=== PATIENT | female | born 1985 | race Caucasian/White ===

== ENCOUNTER 2021-03-06 18:26 | Inpatient (IN) | payer OTHER, SELFPAY ==
[2021-03-06] VITALS (81 sets, daily range): BP systolic 130–180; BP diastolic 66–98; PULSE 69–101; RESP 16; TEMP 36.4–36.8; O2SAT 93–100
[2021-03-06 10:20] LABS: Basophils Percent Auto 0.3 % (0.2-1.2); Eosinophils Absolute Auto 0.2 K/mm3 (0-0.3); Eosinophils Percent Auto 1.8 % (0-4.4); Hematocrit 35.3 % (37.0-47.0); Immature Granulocyte Absolute 0.14 K/mm3 (0.00-0.031); Immature Granulocyte Percent A 1.3 % (0-0.5); Lymphocytes Percent Auto 9.1 % (18.3-44.2); Mean Corpuscular Hemoglobin 29.5 pg (26-34); Mean Corpuscular Volume 86.7 fl (80-100); Mean Platelet Volume 10.5 fl (7.4-10.4); Monocytes Absolute Auto 0.7 K/mm3 (0.1-0.6); Monocytes Percent Auto 6.6 % (2.6-8.5); Neutrophils Absolute Auto 8.9 K/mm3 (1.3-6.7); Neutrophils Percent Auto 80.9 % (45.5-73.1); Platelet Count Result 251 k/mm3 (150-375); Red Blood Count 4.07 M/mm3 (4.2-5.4); Red Cell Distribution Width 12.1 % (11.5-14.5)
[2021-03-06 10:25] LABS: Add Urine Microscopic? NO; Appearance Urine Clear (Clear); Bilirubin Urine Negative (Negative); Blood Urine Negative (Negative); Color Urine Straw (Yellow); Glucose Urine UA Negative (Negative); Ketones Urine Negative (Negative); Leukocyte Esterase Ur Negative LEU/UL (NEGATIVE); Nitrate Urine Negative (Negative); Protein Urine Negative (Negative); Urobilinogen Urine Negative mg/dL (<2.0)
[2021-03-06 10:27] LABS: Specific Grav Ur 1.003 (1.001-1.035)
[2021-03-06 10:32] LABS: Alanine Aminotransferase 17 U/L (4-35); Albumin Level 3.4 g/dL (3.5-5.1); Alkaline Phosphatase 90 U/L (38-126); Anion Gap 7 mmol/L (8-16); Aspartate Amino Transferase 25 U/L (14-36); Bilirubin,Total 0.2 mg/dL (0.2-1.3); Blood Urea Nitrogen 4 mg/dL (7-17); Calcium 8.7 mg/dL (8.4-10.2); Carbon Dioxide 22 mmol/L (22-30); Chloride 107 mmol/L (98-107); Estimated Glomerular Filt Rate > 60; Glucose 99 mg/dL (65-105); Potassium 3.7 mmol/L (3.4-5.0); Sodium 136 mmol/L (137-145); Uric Acid 4.6 mg/dL (2.5-7.5)
--- NOTE | 2021-03-06 12:05 | PC.NURSE ---
1156- SPoke with Pan Ferraro CNM, labs and BPs reveiwed. Patient with reports of a headache that was not relieved with Tylenol 1gm taken at 0530, patinet took another 500mg at 0830. Per Pan Ferraro CNM, patient may order lunch, she will speak with Dr. Torres and call me back with new orders.
[2021-03-06 15:43] LABS: Creatinine Urine 16.6 mg/dL; Total Protein Urine Random 15 mg/dL
--- NOTE | 2021-03-06 16:37 | PM.IMHP ---
H&P: HPI History of Present Illness Date/Time: 03/06/21 16:37 Chief Complaint: elevated BPs Narrative: Emily is a 35yo at 36.3 with elevated Bps. PC ratio 0.9. Was hoping for a tolac. First CS was for FTD of 6# baby. Review of Systems Review of Systems: All systems reviewed & are unremarkable except as noted in HPI and below Meds Home Medications and Allergies Allergies Allergy/AdvReac Type Severity Reaction Status Date / Time No Known Allergies Allergy Unverified 10/20/17 13:45 Vital Signs Vital Signs - 24 hr 03/06/21 09:46 03/06/21 10:01 03/06/21 10:20 Pulse Rate 91 85 74 Blood Pressure 158/94 H 149/94 H Blood Pressure [Left Arm] 158/94 H 03/06/21 10:43 03/06/21 10:46 03/06/21 11:01 Pulse Rate 82 76 77 Blood Pressure 161/90 H 153/97 H 154/93 H Blood Pressure [Left Arm] 03/06/21 11:16 03/06/21 11:31 03/06/21 11:46 Pulse Rate 79 75 85 Blood Pressure 160/80 H 150/90 H 152/86 H Blood Pressure [Left Arm] 03/06/21 13:01 03/06/21 16:16 Pulse Rate 89 77 Blood Pressure 166/84 H 165/95 H Blood Pressure [Left Arm] Exam Const: General: no acute distress Resp: Effort & Inspection: normal respiratory effort Auscultation: clear to auscultation bilaterally Cardio: Rate: regular rate Rhythm: regular rhythm GI: GI Palp: Yes Soft to palpation Extrem: General: normal to inspection H&P: Results Labs Labs: Short CBC 03/06/21 Range/Units 10:04 WBC 11.0 H (4.5-10.0) K/mm3 Hgb 12.0 (12.0-15.0) g/dL Hct 35.3 L (37.0-47.0) % Plt Count 251 (150-375) k/mm3 BMP 03/06/21 10:04 Sodium 136 L Potassium 3.7 Chloride 107 Carbon Dioxide 22 BUN 4 L Creatinine 0.50 L Glucose 99 Calcium 8.7 Liver Function 03/06/21 Range/Units 10:04 Total Bilirubin 0.2 (0.2-1.3) mg/dL AST 25 (14-36) U/L ALT 17 (4-35) U/L Alkaline Phosphatase 90 (38-126) U/L Albumin 3.4 L (3.5-5.1) g/dL Urine 03/06/21 Range/Units 10:04 Urine Color Straw (Yellow) Urine Appearance Clear (Clear) Urine pH 7.0 (5.0-9.0) Ur Specific [place] 1.003 (1.001-1.035) Urine Protein Negative (Negative) mg/dL Urine Glucose (UA) Negative (Negative) mg/dL Assessment and Plan Additional Plan Reassuring status- category 1 BPs elevated- moderately. 24 hour urine pending. If any features of severe PreE, will deliver. Discussed with her that CS is more prudent in these circumstances with cervix unfavorable and her pelvis unable to deliver a 6# baby last time. I recommend R CS when delivery needed.
[2021-03-06] MEDS: ACETAMINOPHEN 500 MG TABLET 1000 MG PO (17:00)
[2021-03-06] MEDS: LACTATED RINGERS 1,000 ML 125 ML IV CONT (19:15)
[2021-03-06] MEDS: MAGNESIUM SULF 4 GM/WATER100ML 4 GM/100 ML BAG IVPB (19:16)
--- NOTE | 2021-03-06 19:30 | PC.NURSE ---
Dr. Torres notified of pt blood pressures. Pt to have at 0730 in AM. NPO after midnight. Anesthesia chose time and aware.
[2021-03-06] MEDS: MAGNESIUM SULF 20GM/WATER500ML 500 ML 50 MG IV CONT (19:38)
--- NOTE | 2021-03-06 20:11 | PC.NURSE ---
[address] HUDSON TO UPDATE ABOUT SUSTAINED HIGH BLOOD PRESSURES. ORDERS RECEIVED TO GIVEN LABETALOL 20 MG IV NOW AND START PROCARDIA XL 30 MG DAILY WITH A FIRST DOSE NOW.
--- NOTE | 2021-03-06 22:40 | PC.NURSE ---
[address] HUDSON ABOUT SUSTAINED HIGH BLOOD PRESSURE AFTER TREATMENT. ORDERS RECEIVED FOR LABETALOL IV 40MG NOW.
[2021-03-07] VITALS (158 sets, daily range): BP systolic 119–168; BP diastolic 60–117; PULSE 25–122; RESP 14–20; TEMP 36.1–36.7; O2SAT 77–100; BMI 42.7
[2021-03-07] MEDS: ACETAMINOPHEN 500 MG TABLET 1000 MG PO (00:58)
[2021-03-07] MEDS: MAGNESIUM SULF 20GM/WATER500ML 500 ML 50 MG IV CONT ×2 (05:50→18:15)
--- NOTE | 2021-03-07 06:57 | WPDANESEPPF ---
Anes - Initial Pre Proc Eval Date/Time: 03/07/21 06:57 Surgeon: Belle Torre MD Pre Op Diagnosis: Hip Evaluation Patient Data Age: 35 Gender: F Height: 1.55 m Weight: 102.7 kg Last Vital Signs Temp 36.8 C 03/06/21 19:16 Pulse 82 03/07/21 06:31 Resp 14 03/07/21 02:00 BP 161/90 H 03/07/21 06:31 Pulse Ox 85 L 03/07/21 06:53 Allergies Allergy/AdvReac Type Severity Reaction Status Date / Time No Known Allergies Allergy Unverified 10/20/17 13:45 Home Medications Medication Instructions Recorded Confirmed Type [id number] fumarate-FA 1 tablet PO DAILY 03/07/21 03/07/21 History [] levothyroxine 50 mcg PO DAILY 03/07/21 03/07/21 History Laboratory Tests 03/06/21 03/06/21 03/06/21 10:04 10:04 10:04 WBC 11.0 K/mm3 H K/mm3 (4.5-10.0) RBC 4.07 M/mm3 L M/mm3 (4.2-5.4) Hgb 12.0 g/dL g/dL (12.0-15.0) Hct 35.3 % L % (37.0-47.0) MCV 86.7 fl fl (80-100) MCH 29.5 pg pg (26-34) MCHC 34.0 g/dl g/dl (32-36) RDW 12.1 % % (11.5-14.5) Plt Count 251 k/mm3 k/mm3 (150-375) MPV 10.5 fl H fl (7.4-10.4) Immature Gran % (Auto) 1.3 % H % (0-0.5) Neut % (Auto) 80.9 % H % (45.5-73.1) Lymph % (Auto) 9.1 % L % (18.3-44.2) [place] % (Auto) 6.6 % % (2.6-8.5) Eos % (Auto) 1.8 % % (0-4.4) Baso % (Auto) 0.3 % % (0.2-1.2) Lymph # (Auto) 1.00 K/mm3 K/mm3 (0.9-3.2) [place] # (Auto) 0.7 K/mm3 H K/mm3 (0.1-0.6) Eos # (Auto) 0.2 K/mm3 K/mm3 (0-0.3) Baso # (Auto) 0.0 K/mm3 K/mm3 (0.0-0.1) Abs Immat Gran (auto) 0.14 K/mm3 H K/mm3 (0.00-0.031) Absolute Neuts (auto) 8.9 K/mm3 H K/mm3 (1.3-6.7) Absolute Nucleated RBC 0.0 K/mm3 K/mm3 (0.0-0.012) Nucleated RBC % 0.0 % % (0.0-0.2) Sodium Potassium Chloride Carbon Dioxide Anion Gap BUN Creatinine Estim Creat Clear Calc Estimated GFR Glucose Uric Acid Calcium Total Bilirubin AST ALT Alkaline Phosphatase Total Protein Albumin Urine Color Straw (Yellow) Urine Appearance Clear (Clear) Urine pH 7.0 (5.0-9.0) Ur Specific [place] 1.003 (1.001-1.035) Urine Protein Negative mg/dL mg/dL (Negative) Urine Glucose (UA) Negative mg/dL mg/dL (Negative) Urine Ketones Negative mg/dL mg/dL (Negative) Ur Blood (Man) Negative (Negative) Urine Nitrate Negative (Negative) Urine Bilirubin Negative (Negative) Urine Urobilinogen Negative mg/dL mg/dL (<2.0) Ur Leukocyte Esterase Negative MADYSON/UL MADYSON/UL (NEGATIVE) U Random Total Protein 15 mg/dL mg/dL Urine Creatinine 16.6 mg/dL mg/dL Protein/Creat Ratio 2 0.90 mg/mg H mg/mg (0-0.20) RPR Blood Type Antibody Screen 03/06/21 03/06/21 03/06/21 10:04 19:24 19:24 WBC RBC Hgb Hct MCV MCH MCHC RDW Plt Count MPV Immature Gran % (Auto) Neut % (Auto) Lymph % (Auto) [place] % (Auto) Eos % (Auto) Baso % (Auto) Lymph # (Auto) [place] # (Auto) Eos # (Auto) Baso # (Auto) Abs Immat Gran (auto) Absolute Neuts (auto) Absolute Nucleated RBC Nucleated RBC % Sodium 136 mmol/L L mmol/L (137-145) Potassium 3.7 mmol/L mmol/L (3.4-5.0) Chloride
[2021-03-07] MEDS: LABETALOL HCL INJ 100 MG/20 ML VIAL 20 MG IV PUSH (07:00)
--- NOTE | 2021-03-07 07:00 | WPDANESEPPF ---
Anes - Initial Pre Proc Eval Procedure: C section Date/Time: 03/07/21 07:00 Surgeon: Melissa Pre Op Diagnosis: PI Pre Op Diagnosis: Hip Evaluation Patient Data Age: 35 Gender: F Height: 1.55 m Weight: 102.7 kg Last Vital Signs Temp 36.8 C 03/06/21 19:16 Pulse 82 03/07/21 06:31 Resp 14 03/07/21 02:00 BP 161/90 H 03/07/21 06:31 Pulse Ox 97 03/07/21 06:58 Allergies Allergy/AdvReac Type Severity Reaction Status Date / Time No Known Allergies Allergy Unverified 10/20/17 13:45 Home Medications Medication Instructions Recorded Confirmed Type [id number] fumarate-FA 1 tablet PO DAILY 03/07/21 03/07/21 History [] levothyroxine 50 mcg PO DAILY 03/07/21 03/07/21 History Laboratory Tests 03/06/21 03/06/21 03/06/21 10:04 10:04 10:04 WBC 11.0 K/mm3 H K/mm3 (4.5-10.0) RBC 4.07 M/mm3 L M/mm3 (4.2-5.4) Hgb 12.0 g/dL g/dL (12.0-15.0) Hct 35.3 % L % (37.0-47.0) MCV 86.7 fl fl (80-100) MCH 29.5 pg pg (26-34) MCHC 34.0 g/dl g/dl (32-36) RDW 12.1 % % (11.5-14.5) Plt Count 251 k/mm3 k/mm3 (150-375) MPV 10.5 fl H fl (7.4-10.4) Immature Gran % (Auto) 1.3 % H % (0-0.5) Neut % (Auto) 80.9 % H % (45.5-73.1) Lymph % (Auto) 9.1 % L % (18.3-44.2) [place] % (Auto) 6.6 % % (2.6-8.5) Eos % (Auto) 1.8 % % (0-4.4) Baso % (Auto) 0.3 % % (0.2-1.2) Lymph # (Auto) 1.00 K/mm3 K/mm3 (0.9-3.2) [place] # (Auto) 0.7 K/mm3 H K/mm3 (0.1-0.6) Eos # (Auto) 0.2 K/mm3 K/mm3 (0-0.3) Baso # (Auto) 0.0 K/mm3 K/mm3 (0.0-0.1) Abs Immat Gran (auto) 0.14 K/mm3 H K/mm3 (0.00-0.031) Absolute Neuts (auto) 8.9 K/mm3 H K/mm3 (1.3-6.7) Absolute Nucleated RBC 0.0 K/mm3 K/mm3 (0.0-0.012) Nucleated RBC % 0.0 % % (0.0-0.2) Sodium Potassium Chloride Carbon Dioxide Anion Gap BUN Creatinine Estim Creat Clear Calc Estimated GFR Glucose Uric Acid Calcium Total Bilirubin AST ALT Alkaline Phosphatase Total Protein Albumin Urine Color Straw (Yellow) Urine Appearance Clear (Clear) Urine pH 7.0 (5.0-9.0) Ur Specific [place] 1.003 (1.001-1.035) Urine Protein Negative mg/dL mg/dL (Negative) Urine Glucose (UA) Negative mg/dL mg/dL (Negative) Urine Ketones Negative mg/dL mg/dL (Negative) Ur Blood (Man) Negative (Negative) Urine Nitrate Negative (Negative) Urine Bilirubin Negative (Negative) Urine Urobilinogen Negative mg/dL mg/dL (<2.0) Ur Leukocyte Esterase Negative MADYSNO/UL MADYSON/UL (NEGATIVE) U Random Total Protein 15 mg/dL mg/dL Urine Creatinine 16.6 mg/dL mg/dL Protein/Creat Ratio 2 0.90 mg/mg H mg/mg (0-0.20) RPR Blood Type Antibody Screen 03/06/21 03/06/21 03/06/21 10:04 19:24 19:24 WBC RBC Hgb Hct MCV MCH MCHC RDW Plt Count MPV Immature Gran % (Auto) Neut % (Auto) Lymph % (Auto) [place] % (Auto) Eos % (Auto) Baso % (Auto) Lymph # (Auto) [place] # (Auto) Eos # (Auto) Baso # (Auto) Abs Immat Gran (auto) Absolute Neuts (auto) Absolute Nucleated RBC Nucleated RBC % Sodium 136 mmol/L L mmol/L (137-145) Potassium 3.7 mmol/L mmol/L
--- NOTE | 2021-03-07 07:24 | PM.IMHP ---
H&P: HPI History of Present Illness Date/Time: 03/07/21 07:24 Chief Complaint: PreE Narrative: Emily is a 35yo with prior CS who is 36.3 with PreE with severe features. Required IV labetalol 3 doses so far. On magnesium also. GOMEZ x more than one day. Plan repeat CS this morning. Review of Systems Review of Systems: All systems reviewed & are unremarkable except as noted in HPI and below PMFSH Past Medical History Medical History (Updated 03/07/21 @ 06:58 by Miah Mujica DO) Hypothyroidism PIH ( induced hypertension) Family History Family History (Updated 03/07/21 @ 06:10 by Shelli Brandon RN) Grandparent Diabetes mellitus Lung cancer Father Hypertension Mother Hypertension Social History Social History Smoking status: Never smoker Second hand tobacco smoke exposure: No Substance use: never Gender identity (if verbalized by the patient): Female Sexual Orientation (if Verbalized by the Patient): Straight or Heterosexual Spiritual care concerns: No Meds Home Medications and Allergies Home Medications Medication Instructions Recorded Confirmed Type [id number] fumarate-FA 1 tablet PO DAILY 03/07/21 03/07/21 History [] levothyroxine 50 mcg PO DAILY 03/07/21 03/07/21 History Allergies Allergy/AdvReac Type Severity Reaction Status Date / Time No Known Allergies Allergy Unverified 10/20/17 13:45 Vital Signs Vital Signs - 24 hr 03/06/21 09:46 03/06/21 10:00 03/06/21 10:01 Temperature 97.6 F Pulse Rate 91 85 Respiratory Rate Blood Pressure 158/94 H 149/94 H Blood Pressure [Left Arm] Pulse Oximetry 03/06/21 10:20 03/06/21 10:43 03/06/21 10:46 Temperature Pulse Rate 74 82 76 Respiratory Rate Blood Pressure 161/90 H 153/97 H Blood Pressure [Left Arm] 158/94 H Pulse Oximetry 03/06/21 11:01 03/06/21 11:16 03/06/21 11:31 Temperature Pulse Rate 77 79 75 Respiratory Rate Blood Pressure 154/93 H 160/80 H 150/90 H Blood Pressure [Left Arm] Pulse Oximetry 03/06/21 11:46 03/06/21 13:01 03/06/21 16:16 Temperature Pulse Rate 85 89 77 Respiratory Rate Blood Pressure 152/86 H 166/84 H 165/95 H Blood Pressure [Left Arm] Pulse Oximetry 03/06/21 17:47 03/06/21 19:09 03/06/21 19:16 Temperature 98.2 F Pulse Rate 83 97 82 Respiratory Rate Blood Pressure 174/93 H 144/83 H 143/77 H Blood Pressure [Left Arm] Pulse Oximetry 03/06/21 19:23 03/06/21 19:25 03/06/21 19:28 Temperature Pulse Rate 88 Respiratory Rate Blood Pressure 152/69 H Blood Pressure [Left Arm] Pulse Oximetry 97 98 03/06/21 19:30 03/06/21 19:33 03/06/21 19:38 Temperature Pulse Rate 96 Respiratory Rate Blood Pressure 150/85 H Blood Pressure [Left Arm] Pulse Oximetry 97 99 03/06/21 19:43 03/06/21 19:48 03/06/21 19:50 Temperature Pulse Rate 89 Respiratory Rate Blood Pressure 161/88 H Blood Pressure [Left Arm] Pulse Oximetry 98 99 03/06/21 19:53 03/06/21 19:58 03/06/21 20:00 Temperature Pulse Rate 87 Respiratory Rate Blood Pressure 174/86 H Blood Pressure [Left Arm] Pulse Oximetry 99 98 03/06/21 20:03 03/06/21 20:08 03/06/21 20:13 Temperature Pulse Rate Respiratory Rate Blood Pressure Blood Pressure [Left Arm] Pulse Oximetry 98 98 98 03/06/21 20:15 03/06/21 20:18 03/06/21 20:23 Temperature Pulse Rate 92 Respiratory Rate Blood Pressure 163/89 H Blood Pressure [Left Arm] Pulse Oximetry 99 98 03/06/21 20:28 03/06/21 20:30 03/06/21 20:33 Temperature Pulse Rate 89 Respiratory Rate Blood Pressure 161/84 H Blood Pressure [Left Arm] Pulse Oximetry 98 98 03/06/21 20:38 03/06/21 20:43 03/06/21 20:48 Temperature Pulse Rate Respiratory Rate Blood Pressure Blood Pressure [Left Arm] Pulse Oximetry 100 98 99 03/06/21 20:50 06/2
--- NOTE | 2021-03-07 07:28 | WPDHPUPDATE1 ---
History and Physical Update Update Date/Time: 03/07/21 07:28 History and Physical has been reviewed, including an updated exam of the patient. There are NO changes in the patient's condition. Risks, benefits, and alternatives have been discussed and questions answered. Patient agrees to proceed with procedure.
[2021-03-07] MEDS: LACTATED RINGERS 1,000 ML 125 ML IV CONT (07:34)
[2021-03-07] MEDS: ceFAZolin 2 GM/D5W 50 ML 2 GM/50 ML BAG IVPB (07:35)
[2021-03-07] MEDS: miSOPROStol 200 MCG TABLET 1000 MCG (09:05)
--- NOTE | 2021-03-07 09:21 | PM.OBPRVD ---
OB - Delivery Note Procedure Delivery date: 03/07/21 Procedure: repeat section events: Previous and Pre-Eclampsia Intrapartal events: Severe Preeclampsia Induction method: none Route of delivery: Specimen: Yes (placenta) Quantitative Blood Loss (ml): 315 Anesthesia type: CSE Disposition: floor Complications: none Narrative: The patient was taken to the OR and received spinal anesthesia. She was placed in dorsal supine position with left lateral tilt. SCDs and stark were placed. She was prepped and draped in the normal sterile fashion. A Pfannensteil skin incision was made and carried through to the underlying layer of fascia. The fascia was incised in the midline and then extended laterally using Harry scissors. The muscles were in the midline. Omentum was attached to the peritoneum, but eventually an opening in the peritoneum was made bluntly in an area without omentum. The peritoneal incision was extended inferiorly and superiorly and laterally with care to avoid the bladder, omentum, and bowel. The bladder blade was then inserted, the vesicouterine peritoneum was grasped, incised with Metzenbaum scissors, and a bladder flap created. The bladder blade was reinserted. A low transverse uterine incision was made with a scalpel and extended bluntly. AROM was performed and fluid was noted to be clear. The head was delivered, followed by the remainder of the baby. The baby's oropharynx was suctioned. After 30 seconds, the cord was clamped and cut and the infant was handed off. Cord blood was obtained and the placenta was then removed manually. The uterus was exteriorized. A moist lap sponge was used to curette the endometrium. The uterine incision was then closed with one layer of 0-Vicryl in a running, locking fashion. Good hemostasis was noted. The posterior cul de sac was irrigated with normal saline and cleared of all clot and debris. The uterus was returned to the abdomen. Uterine atony due to magnesium was treated with hemabate and extra pitocin. Both lateral gutters were then irrigated. The rectus muscles were inspected and found to be hemostatic. The fascia was reapproximated using 0-Vicryl in running fashion. The subcutaneous tissue was irrigated with normal saline and made hemostatic with Bovie electrocautery. The subcutaneous tissue was reapproximated with a layer of running 2-0 plain gut. The skin was then closed with absorbable eric. Steri strips and a bandage were applied. The uterus was evacuated. Cytotec was given rectally to help uterine tone. The patient tolerated the procedure very well. All counts were correct. She was taken to the recovery room in good condition. Baby Date of : 03/07/21 Time of : 08:37 Weeks of gestation at delivery: 36 Infant gender: Male Weight (pounds): 6 Weight (ounces): 1 presentation: vertex Placenta delivery description: Manual Removal cord vessel description: 3 Vessels and Delayed Cord Clamping score one minute: 8 score five minutes: 9
[2021-03-07] MEDS: OXYTOCIN 30 UNITS/NS 500 ML 30 UNITS/500 ML BAG 125 UNITS IV CONT (09:47)
[2021-03-07] MEDS: MORPHINE SULFATE (*CRX) 2 MG/ML INJ IV PUSH (09:55)
[2021-03-07 12:41] LABS: Basophils Percent Auto 0.2 % (0.2-1.2); Eosinophils Percent Auto 0.2 % (0-4.4); Hemoglobin 12.1 g/dL (12.0-15.0); Immature Granulocyte Absolute 0.08 K/mm3 (0.00-0.031); Immature Granulocyte Percent A 0.6 % (0-0.5); Lymphocytes Absolute Auto 0.85 K/mm3 (0.9-3.2); Lymphocytes Percent Auto 6.5 % (18.3-44.2); Mean Corpuscular HGB Conc 33.6 g/dl (32-36); Mean Corpuscular Hemoglobin 29.9 pg (26-34); Mean Corpuscular Volume 88.9 fl (80-100); Mean Platelet Volume 10.2 fl (7.4-10.4); Monocytes Absolute Auto 0.6 K/mm3 (0.1-0.6); Monocytes Percent Auto 4.9 % (2.6-8.5); Neutrophils Absolute Auto 11.4 K/mm3 (1.3-6.7); Neutrophils Percent Auto 87.6 % (45.5-73.1); Platelet Count Result 259 k/mm3 (150-375); Red Blood Count 4.05 M/mm3 (4.2-5.4); Red Cell Distribution Width 12.3 % (11.5-14.5)
[2021-03-07 12:55] LABS: Alanine Aminotransferase 18 U/L (4-35); Albumin Level 3.4 g/dL (3.5-5.1); Alkaline Phosphatase 104 U/L (38-126); Anion Gap 7 mmol/L (8-16); Aspartate Amino Transferase 32 U/L (14-36); Bilirubin,Total 0.2 mg/dL (0.2-1.3); Blood Urea Nitrogen 5 mg/dL (7-17); Calcium 7.3 mg/dL (8.4-10.2); Carbon Dioxide 21 mmol/L (22-30); Chloride 105 mmol/L (98-107); Estimated CRCL calculation 125 ml/min; Estimated Glomerular Filt Rate > 60; Glucose 108 mg/dL (65-105); Sodium 133 mmol/L (137-145); Uric Acid 4.8 mg/dL (2.5-7.5)
[2021-03-07] MEDS: KETOROLAC 30 MG/ML VIAL (*BKC) IV PUSH ×2 (13:21→19:50)
--- NOTE | 2021-03-07 13:42 | PC.NURSE ---
Patient transferred to post room #287 via stretcher. Support person present. Oriented to unit, room, information board, rooming in, admission packet and security measures. Patient verbalizes understanding.
[2021-03-07] MEDS: KCL 20 MEQ/D5/0.45% SOD CHL 1,000 ML 125 ML IV CONT (14:35)
[2021-03-07] MEDS: ONDANSETRON INJ 4 MG/2 ML VIAL IV PUSH ×2 (15:12→21:12)
[2021-03-07] MEDS: diphenhydrAMINE HCl INJ 50 MG/ML VIAL 12.5 MG IV PUSH (20:10)
[2021-03-07] MEDS: NIFEdipine 30 MG TAB.ER.24 PO (21:14)
[2021-03-08] VITALS (7 sets, daily range): BP systolic 117–159; BP diastolic 74–96; PULSE 72–102; RESP 16–18; TEMP 36.1–37.4; O2SAT 93–98
[2021-03-08] MEDS: SALINE 0.65% NAS SOLN 44 ML BTL 1 SPRAY NASAL (00:09)
[2021-03-08] MEDS: HYDROcodone/acetaminophen (*CRX) 5-325 MG TABLET 1 TAB PO (00:39)
[2021-03-08] MEDS: KETOROLAC 30 MG/ML VIAL (*BKC) IV PUSH (02:26)
[2021-03-08] MEDS: MAGNESIUM SULF 20GM/WATER500ML 500 ML 50 MG IV CONT (03:25)
[2021-03-08] MEDS: DEXTROSE 5%/0.45% SOD CHL 1,000 ML 75 ML IV CONT (03:25)
[2021-03-08 05:52] LABS: Basophils Percent Auto 0.2 % (0.2-1.2); Eosinophils Absolute Auto 0.1 K/mm3 (0-0.3); Eosinophils Percent Auto 0.9 % (0-4.4); Hematocrit 33.2 % (37.0-47.0); Immature Granulocyte Absolute 0.07 K/mm3 (0.00-0.031); Immature Granulocyte Percent A 0.7 % (0-0.5); Lymphocytes Absolute Auto 0.94 K/mm3 (0.9-3.2); Lymphocytes Percent Auto 9.4 % (18.3-44.2); Mean Corpuscular HGB Conc 33.1 g/dl (32-36); Mean Corpuscular Hemoglobin 29.6 pg (26-34); Mean Corpuscular Volume 89.2 fl (80-100); Mean Platelet Volume 10.5 fl (7.4-10.4); Monocytes Absolute Auto 0.7 K/mm3 (0.1-0.6); Monocytes Percent Auto 6.9 % (2.6-8.5); Neutrophils Absolute Auto 8.2 K/mm3 (1.3-6.7); Neutrophils Percent Auto 81.9 % (45.5-73.1); Platelet Count Result 230 k/mm3 (150-375); Red Blood Count 3.72 M/mm3 (4.2-5.4); Red Cell Distribution Width 12.3 % (11.5-14.5)
[2021-03-08] MEDS: LEVOTHYROXINE SODIUM 50 MCG TABLET PO (07:18)
--- NOTE | 2021-03-08 09:17 | WPDANLDNPN2 ---
Anes-Prog Note L&D-Neuraxial Date/Time: 03/08/21 09:17 Neuraxial medications: intrathecal PF morphine Patient feedback: Patient satisfied with post-operative pain management.
--- NOTE | 2021-03-08 09:17 | WPDANLDPN2 ---
Anes-Prog Note L&D Date/Time: 03/08/21 09:17 Comfortable throughout: section Neuraxial method: spinal Neuro status: Neuro function grossly intact. Cardiovascular status: normal Respiratory status: normal Airway patency: baseline Mental status: baseline Post-Op hydration status: normal Vital Signs: Last Vital Signs Temp 36.1 C L 03/08/21 07:15 Pulse 97 03/08/21 07:15 Resp 16 03/08/21 07:15 BP 132/75 03/08/21 07:15 Pulse Ox 97 03/08/21 07:15 Pain score (VAS): 0/10 I/O: Intake & Output 03/07/21 03/08/21 03/08/21 23:59 07:59 15:59 Intake Total 1400 1000 Output Total 1100 3675 Balance 300 -2675 Post-procedural complaints: none Patient feedback: Patient satisfied with anesthetic care.
[2021-03-08] MEDS: IBUPROFEN 600 MG TABLET PO ×2 (10:13→17:17)
[2021-03-08] MEDS: DOCUSATE SODIUM 100 MG CAPSULE PO ×2 (10:13→15:21)
[2021-03-08] MEDS: HYDROcodone/acetaminophen (*CRX) 10-325 MG TABLET 1 TAB PO ×3 (10:13→20:43)
[2021-03-08] MEDS: MULTIVIT/MIN/PREN/FOL AC/IRON TABLET 1 TAB PO (10:13)
--- NOTE | 2021-03-08 11:18 | PM.OBPNVD ---
OB - PN: Subj Subjective Date/time seen: 03/08/21 11:18 Patient comments: no complaints baby status: doing well Narrative: POD 1 from primary CS. Doing well. Normal lochia. Eating, ambulating, stark still in. OB - PN: Obj Data Labs CBC & Chem 7: 03/08/21 05:17 03/07/21 12:34 Labs: Laboratory Results - last 24 hr 03/07/21 03/07/21 03/08/21 12:34 12:34 05:17 WBC 13.0 H 10.0 RBC 4.05 L 3.72 L Hgb 12.1 11.0 L Hct 36.0 L 33.2 L MCV 88.9 89.2 MCH 29.9 29.6 MCHC 33.6 33.1 RDW 12.3 12.3 Plt Count 259 230 MPV 10.2 10.5 H Immature Gran % (Auto) 0.6 H 0.7 H Neut % (Auto) 87.6 H 81.9 H Lymph % (Auto) 6.5 L 9.4 L [place] % (Auto) 4.9 6.9 Eos % (Auto) 0.2 0.9 Baso % (Auto) 0.2 0.2 Lymph # (Auto) 0.85 L 0.94 [place] # (Auto) 0.6 0.7 H Eos # (Auto) 0.0 0.1 Baso # (Auto) 0.0 0.0 Abs Immat Gran (auto) 0.08 H 0.07 H Absolute Neuts (auto) 11.4 H 8.2 H Absolute Nucleated RBC 0.0 0.0 Nucleated RBC % 0.0 0.0 Sodium 133 L Potassium 4.0 Chloride 105 Carbon Dioxide 21 L Anion Gap 7 L BUN 5 L Creatinine 0.60 L Estim Creat Clear Calc 125 Estimated GFR > 60 Glucose 108 H Uric Acid 4.8 Calcium 7.3 L Total Bilirubin 0.2 AST 32 ALT 18 Alkaline Phosphatase 104 Total Protein 6.0 L Albumin 3.4 L OB - PN A/P Plan day: 1 Plan: routine care Comments: severe PreE- UOP excellent. s/p magnesium. BP only mildly elevated off mag. continue procardia xl 30 q HS. Pt anxious to go home, discussed that she was very sick and that sometimes BPs go back up around day 2. She should stay until POD 3, at least. Otherwise routine post op care. Time Spent With Patient Time: Total time spent is greater than 50% in coordination of care (as documented) at patient's floor/unit and/or counseling patient: Exam Narrative: Exam Narrative: NAD abdomen soft, appropriately tender, incision bandaged Extremities nontender with 1+ edema UOP 3600/11 hrs
[2021-03-08] MEDS: SIMETHICONE 80 MG TAB.CHEW PO ×2 (17:26→20:44)
[2021-03-08] MEDS: NIFEdipine 30 MG TAB.ER.24 PO (20:43)
[2021-03-09] VITALS (8 sets, daily range): BP systolic 130–184; BP diastolic 67–97; PULSE 73–97; RESP 16–18; TEMP 36.1–37.3; O2SAT 94–99
[2021-03-09] MEDS: HYDROcodone/acetaminophen (*CRX) 10-325 MG TABLET 1 TAB PO ×5 (00:25→20:22)
[2021-03-09] MEDS: SIMETHICONE 80 MG TAB.CHEW PO ×5 (00:25→20:22)
[2021-03-09] MEDS: IBUPROFEN 600 MG TABLET PO ×4 (00:26→19:20)
[2021-03-09] MEDS: LEVOTHYROXINE SODIUM 50 MCG TABLET PO (06:23)
[2021-03-09] MEDS: MULTIVIT/MIN/PREN/FOL AC/IRON TABLET 1 TAB PO (06:27)
[2021-03-09] MEDS: DOCUSATE SODIUM 100 MG CAPSULE PO ×2 (06:27→16:58)
--- NOTE | 2021-03-09 07:55 | P.PNOB_ITS ---
OB - PN: Subj Subjective Date/time seen: 03/09/21 07:55 Patient comments: no complaints and pain well controlled baby status: doing well [place] feeding status: breast and bottle feeding Narrative: Has cough, usually has allergy sx this time of year. OB - PN: Obj Data Labs CBC & Chem 7: 03/08/21 05:17 03/07/21 12:34 OB - PN A/P Plan day: 2 Plan: routine care Comments: BPs 117-159/67-96 Denies sx Continue procardia 30 xl q day. mucinex for cough. incentive spirometry. Time Spent With Patient Time: Total time spent is greater than 50% in coordination of care (as documented) at patient's floor/unit and/or counseling patient: Exam Narrative: Exam Narrative: NAD abdomen soft, appropriately tender, incision CDI Extremities nontender with 1+ edema
[2021-03-09] MEDS: guaiFENesin 12 HR 600 MG TABCR 1200 MG PO ×2 (09:20→21:02)
--- NOTE | 2021-03-09 11:55 | PC.NURSE ---
Consult with pt., mother states infant is sleepy and not latching. Mother attempted with first child and reports her milk did not come in. Mother pumped for 6 weeks and required, pumping 1 oz during the entire day. Discussed the early 36. 3/7 week with possible sleepiness, diminished rooting reflex and tone which may impact supply with lack of stimulation. may have less intake than desired with feeding cues. Reviewed feeding cues, frequencies, duration of feedings, feeding elimination flow sheet, and signs of adequate intake. Demonstrated stimulation techniques to wake infant for feeding, infant easily awoken with feeding cues noted. Assisted with to breast. Reviewed positioning/alignment in cross cradle, holding breast in ?U? hold and guided asymmetrical latch on. Infant able to latch correctly. Infant eagerly latched with short bursts of suckling followed with long pausing. Reviewed signs of a correct latch, effective nursing and suck swallow ratio. would slip to shallow latch, and then release. made several eager attempts to latch before falling asleep and mother then bottle fed. Nipple care reviewed of lanolin after feedings, warm compresses as needed. Suggested feeding plan is to continue to put to beast each feeding for 5 minutes, increasing as infant is more eager, then supplement 25mls followed with 15 minutes of pumping. Instructed mother to call out for RN assistance if she is unable to latch infant for feeding or she has discomfort with nursing. Instructed feeding should be initiated three hours from start of last feeding or if feeding cues are noted before. Mother voiced understanding of information shared.
[2021-03-09] MEDS: NIFEdipine 30 MG TAB.ER.24 PO (20:33)
[2021-03-10] VITALS (12 sets, daily range): BP systolic 144–175; BP diastolic 77–105; PULSE 63–86; RESP 16–18; TEMP 36.5–36.7; O2SAT 95–99
[2021-03-10] MEDS: SIMETHICONE 80 MG TAB.CHEW PO (02:45)
[2021-03-10] MEDS: IBUPROFEN 600 MG TABLET PO ×4 (02:46→21:25)
[2021-03-10] MEDS: HYDROcodone/acetaminophen (*CRX) 10-325 MG TABLET 1 TAB PO (02:46)
[2021-03-10] MEDS: LEVOTHYROXINE SODIUM 50 MCG TABLET PO (07:41)
[2021-03-10] MEDS: HYDROcodone/acetaminophen (*CRX) 5-325 MG TABLET 1 TAB PO ×4 (07:49→21:24)
--- NOTE | 2021-03-10 07:53 | PM.OBPNVD ---
OB - PN: Subj Subjective Date/time seen: 03/10/21 07:53 Patient comments: no complaints and pain well controlled baby status: doing well Narrative: Denies GOMEZ/BV/EP. Desperate to go home. OB - PN: Obj Data Labs CBC & Chem 7: 03/08/21 05:17 03/07/21 12:34 OB - PN A/P Plan day: 3 Comments: BPs still elevated, one severe. REpeat PIH labs add labetalol 200 BID. IF BPs improved and only mildly elevated, may DC home late afternoon with close follow up DIscussed with pt reasons for needing continued monitoring, risk of seizure, stroke, etc. Has BP check scheduled in 3 days. Exam Narrative: Exam Narrative: NAD abdomen soft, appropriately tender, incision CDI Extremities nontender with 1+ edema
[2021-03-10 08:25] LABS: Rapid Plasma Reagin Non-Reactive (NonReactive)
[2021-03-10] MEDS: MULTIVIT/MIN/PREN/FOL AC/IRON TABLET 1 TAB PO (08:44)
[2021-03-10] MEDS: DOCUSATE SODIUM 100 MG CAPSULE PO ×2 (08:44→15:17)
[2021-03-10] MEDS: LABETALOL HCL 100 MG TABLET 200 MG PO ×3 (08:44→22:19)
[2021-03-10] MEDS: guaiFENesin 12 HR 600 MG TABCR 1200 MG PO ×2 (08:45→21:23)
[2021-03-10 09:46] LABS: Hematocrit 32.9 % (37.0-47.0); Hemoglobin 10.9 g/dL (12.0-15.0); Mean Corpuscular HGB Conc 33.1 g/dl (32-36); Mean Corpuscular Volume 90.6 fl (80-100); Platelet Count Result 265 k/mm3 (150-375); Red Blood Count 3.63 M/mm3 (4.2-5.4); Red Cell Distribution Width 12.3 % (11.5-14.5); White Blood Count 9.4 K/mm3 (4.5-10.0)
--- NOTE | 2021-03-10 10:05 | PC.NURSE ---
Consult with pt., mother reports she continues to put to breast each feeding. Infant will make eager attempts for a few minutes then become fussy. Mother will then supplement and pump. Mother states she has had a few pumping sessions with small drops of colostrum to give to . Mother is ready to put infant to breast. Reviewed positioning/alignment in football, holding breast in ?C? hold and guided asymmetrical latch on. Infant able to latch correctly. nursed eagerly, with steady draws for a 1 minute burst, he would release latch and eagerly return to breast. Infant is more eager and steady today than previous. Advised to allow infant to make 5 minute attempts before bottle feeding. Reviewed signs of a correct latch, effective nursing and suck swallow ratio. Demonstrated how to adjust latch more deeply while feeding. Discussed to increase supplementation on his demands. Reviewed signs when infant may be ready to decrease/discontinue supplementation. Advised not to decrease/discontinue supplement until a feeding assessed by ICP, WIC for LC for pre/post weight evaluation. Mother v/u to all. Mother has her own Spectra pump for home use and is pumping without difficulties/discomfort. Feeding plan is for mother to attempt to breast each feeding, followed with supplementation at least 35mls and pumping. Mother is feeding as required and waking infant to feed if needed. is currently meeting outcomes for weight, output, jaundice and feeding frequencies. Mother states she feels confident to continue current feeding plan at home. Reviewed transition to breast milk, signs of adequate intake, and engorgement/relief. Instructed to call ICP if intake/output less than required. Reviewed regular medications mother is taking. Information provided per Emily. Reviewed community resources on the [facility] website and in the Mom/Baby guide. Information on outpatient services provided. Mother has no further questions at this time.
[2021-03-10 10:12] LABS: Alanine Aminotransferase 35 U/L (4-35); Albumin Level 3.4 g/dL (3.5-5.1); Alkaline Phosphatase 84 U/L (38-126); Anion Gap 12 mmol/L (8-16); Aspartate Amino Transferase 45 U/L (14-36); Bilirubin,Total 0.2 mg/dL (0.2-1.3); Blood Urea Nitrogen 5 mg/dL (7-17); Calcium 8.6 mg/dL (8.4-10.2); Carbon Dioxide 22 mmol/L (22-30); Chloride 106 mmol/L (98-107); Estimated CRCL calculation 147 ml/min; Estimated Glomerular Filt Rate > 60; Glucose 130 mg/dL (65-105); Potassium 3.7 mmol/L (3.4-5.0); Sodium 140 mmol/L (137-145); Uric Acid 4.2 mg/dL (2.5-7.5)
[2021-03-10] MEDS: NIFEdipine 30 MG TAB.ER.24 PO (21:24)
[2021-03-11] VITALS (7 sets, daily range): BP systolic 131–148; BP diastolic 71–95; PULSE 75–87; RESP 16–18; TEMP 36.6–37; O2SAT 98
[2021-03-11] MEDS: IBUPROFEN 600 MG TABLET PO ×2 (04:39→13:18)
[2021-03-11] MEDS: HYDROcodone/acetaminophen (*CRX) 10-325 MG TABLET 1 TAB PO ×2 (04:43→13:20)
[2021-03-11] MEDS: LABETALOL HCL 100 MG TABLET 200 MG PO ×2 (06:52→15:15)
[2021-03-11] MEDS: LEVOTHYROXINE SODIUM 50 MCG TABLET PO (06:53)
--- NOTE | 2021-03-11 08:09 | P.PNOB_ITS ---
OB - PN: Subj Subjective Date/time seen: 03/11/21 08:09 Interval history: Last night from [id number] pt had several BPs 170s systolic. She denies any symptoms and still desperately wants to go home; almost left AMA yesterday.BPs were improved overnight. Patient comments: pain well controlled and tolerating diet baby status: doing well Whigham feeding status: exclusively bottle feeding OB - PN: Obj Data Labs CBC & Chem 7: 03/10/21 09:28 03/10/21 09:28 Labs: Laboratory Results - last 24 hr 03/06/21 03/10/21 03/10/21 19:24 09:28 09:28 WBC 9.4 RBC 3.63 L Hgb 10.9 L Hct 32.9 L MCV 90.6 MCH 30.0 MCHC 33.1 RDW 12.3 Plt Count 265 MPV 10.0 Sodium 140 Potassium 3.7 Chloride 106 Carbon Dioxide 22 Anion Gap 12 BUN 5 L Creatinine 0.50 L Estim Creat Clear Calc 147 Estimated GFR > 60 Glucose 130 H Uric Acid 4.2 Calcium 8.6 Total Bilirubin 0.2 AST 45 H ALT 35 Alkaline Phosphatase 84 Total Protein 6.0 L Albumin 3.4 L RPR Non-reactive OB - PN A/P Plan day: 4 Comments: We discussed again risks with severely elevated BPs, including stroke and seizure. Added another dose of procardia xl to the am today. If BPs controlled this shift, may go home later today. Denies any symptoms. Has FU at hospital tomorrow and with me on Tuesday. Strict precautions given. Time Spent With Patient Time: Total time spent is greater than 50% in coordination of care (as documented) at patient's floor/unit and/or counseling patient: Time with patient: 15 - 25 minutes Exam Narrative: Exam Narrative: NAD abdomen soft, appropriately tender, incision CDI Extremities nontender with 1+ edema
[2021-03-11] MEDS: guaiFENesin 12 HR 600 MG TABCR 1200 MG PO (08:13)
[2021-03-11] MEDS: NIFEdipine 30 MG TAB.ER.24 PO (08:13)
[2021-03-11] MEDS: DOCUSATE SODIUM 100 MG CAPSULE PO (08:13)
[2021-03-11] MEDS: MULTIVIT/MIN/PREN/FOL AC/IRON TABLET 1 TAB PO (08:13)
--- NOTE | 2021-03-11 08:17 | PM.OBDSVD ---
DS: Admitting Diagnosis Admitting Diagnosis Admitting Diagnosis: severe PreEclampsia 36 weeks DS: Discharge Diagnosis Discharge Diagnosis (1) Pre-eclampsia: Qualifiers: Trimester: third trimester Qualified Code(s): O14.93 - Unspecified pre-eclampsia, third trimester Code(s): O14.90 - Unspecified pre-eclampsia, unspecified trimester Status: Acute (2) delivery delivered: Code(s): O82 - Encounter for delivery without indication Status: Acute OB - DS: Summary Hospital Course Hospital Course: Emily was admitted with severe range BPs and diagnosed with PreEclampsia. She was delivered via repeat CS. BPs increased again starting POD2, and antihypertensives were titrated over the next two days to obtain moderate control. She was discharged home on POD4 with follow up the next two days and strict precautions. OB Procedures : NST, PIH Mgmt and Ultrasound OB Procedures Intrapartum: OB Procedures: : None Peripartum Data Delivery Method: Section Procedures: Procedures Operation Date: 03/07/21 07:30 Actual Procedure Side Surgeon p Section Not Applicable Vanita Torres MD complications: none Status at Discharge Functional status at discharge: independent ambulation Time Spent with Patient Time attestation: Total time spent providing and/or coordinating discharge services: Exam Narrative: Exam Narrative: NAD abdomen soft, appropriately tender, incision CDI DS: Data Data Completed and Pending Pending studies at discharge: Pending at discharge 03/07/21 08:38 Surgical [PTH] Routine Labs on day of discharge: Labs from last 24 hours 03/10/21 03/10/21 03/06/21 09:28 09:28 19:24 WBC 9.4 RBC 3.63 L Hgb 10.9 L Hct 32.9 L MCV 90.6 MCH 30.0 MCHC 33.1 RDW 12.3 Plt Count 265 MPV 10.0 Sodium 140 Potassium 3.7 Chloride 106 Carbon Dioxide 22 Anion Gap 12 BUN 5 L Creatinine 0.50 L Estim Creat Clear Calc 147 Estimated GFR > 60 Glucose 130 H Uric Acid 4.2 Calcium 8.6 Total Bilirubin 0.2 AST 45 H ALT 35 Alkaline Phosphatase 84 Total Protein 6.0 L Albumin 3.4 L RPR Non-reactive Discharge Plan Discharge Attending physician on discharge: Vanita Torres Discharging Clinician: Vanita Torres Anticipated Discharge Date/Time: 03/11/21 15:00 Patient Disposition: Home, Self-Care Activity: no straining, may drive after 2 weeks and pelvic rest Diet: regular Patient Instructions: Antibiotic Form Stand Alone Forms: General Discharge Information Follow-up/Referrals: Vanita Torres MD [Physician] - Discharge Medications: New hydrocodone-acetaminophen 5-325 mg Tablet 1 tablet PO Q4-5H PRN (Reason: Moderate Pain (4-6)) Qty: 30 RF: 0 ibuprofen 600 mg Tablet 600 mg PO Q6H PRN (Reason: Cramping) Qty: 60 RF: 1 labetalol 100 mg Tablet 200 mg PO Q8HR Qty: 90 RF: 1 nifedipine [Procardia XL] 30 mg Tablet Extended Release 24hr 30 mg PO BID Qty: 60 RF: 1 Continued levothyroxine 50 mcg tablet 50 mcg PO DAILY RF: 0 28-800 mg-mcg Tablet 1 tablet PO DAILY RF: 0 Date of admission: 03/06/21 18:26 Primary Care Provider: PHYSICIAN,HOT BALLER Admitting Provider: Belle Torre Attending physician on admission: Belle Torre Condition: Stable
--- NOTE | 2021-03-11 11:24 | PC.NURSE ---
Patient viewed the discharge video Mother & Baby Care, The First Two Weeks . Patient was given the opportunity and encouraged to ask questions. Patient verbalized understanding of information shared and has been given the mother/baby guide for home reference.
== END 2021-03-11 15:23 | disposition home or self-care (01) | DRG 788 ==
LOC: ANHOBOP 18:45 → ANHOB2 03-09 08:23 → ANHLDR 03-12 14:20 → ANHOB2 03-12 14:20 → ANHOBPP 03-12 14:20
PROVIDERS: Obstetrics & Gynecology; Admitting Provider Obstetrics & Gynecology; Visit Provider Obstetrics & Gynecology
PROC: 10D00Z1 Extraction of Products of Conception, Low, Open Approach (ICD-10-PCS; CPT 59514; principal; 2021-03-07 07:30)
DX: O14.14 Severe pre-eclampsia complicating childbirth (principal); Z37.0 Single live birth; Z3A.36 36 weeks gestation of pregnancy; O34.211 Maternal care for low transverse scar from previous cesarean delivery; O99.284 Endocrine, nutritional and metabolic diseases complicating childbirth; E03.9 Hypothyroidism, unspecified; O99.214 Obesity complicating childbirth; E66.01 Morbid (severe) obesity due to excess calories
CPT/HCPCS: 36415; 59025; 80053; 81003; 82570; 84156; 84550; 85025; 85027; 86592; 86850; 86900; 86901; 87086; 87088; 88307; 99199; A9270; J0131; J0690; J1200; J1885; J2270; J2274; J2405; J2590; J3475; J3480; J7120

== ENCOUNTER 2021-03-12 17:59 | Observation (INO) | payer OTHER, SELFPAY ==
[2021-03-12] VITALS (28 sets, daily range): BP systolic 141–180; BP diastolic 72–99; PULSE 64–80; RESP 18; TEMP 36.2–36.7; BMI 40.6
--- NOTE | 2021-03-12 11:55 | OBADM ---
This patient, Emily Terry, admitted to the OB room 115 at 1132 for observation for hypertension. Patient/family oriented to hospital policies and general routines including ID bracelet, bed and alarms, visiting hours, pain management, procedures, bathroom and other care routines, personal items, smoking policy, room service/diet, and visiting hours. Patient/Family are encouraged to report perceived risks to care and to ask questions if they do not understand what they are told or what they should do. Pt informed that another adult needs to come to be responsible for baby while baby is here in the hospital. Pt will call her .
--- NOTE | 2021-03-12 12:09 | PC.NURSE ---
Called Dr. Torre to inform him of this pt and her BP's when he stated he would have to call me right back.
[2021-03-12 12:23] LABS: Basophils Percent Auto 0.2 % (0.2-1.2); Eosinophils Absolute Auto 0.4 K/mm3 (0-0.3); Eosinophils Percent Auto 3.1 % (0-4.4); Hematocrit 33.1 % (37.0-47.0); Hemoglobin 11.1 g/dL (12.0-15.0); Immature Granulocyte Absolute 0.17 K/mm3 (0.00-0.031); Immature Granulocyte Percent A 1.5 % (0-0.5); Lymphocytes Absolute Auto 2.06 K/mm3 (0.9-3.2); Lymphocytes Percent Auto 18.1 % (18.3-44.2); Mean Corpuscular HGB Conc 33.5 g/dl (32-36); Mean Corpuscular Volume 89.5 fl (80-100); Mean Platelet Volume 9.2 fl (7.4-10.4); Monocytes Absolute Auto 0.7 K/mm3 (0.1-0.6); Monocytes Percent Auto 6.2 % (2.6-8.5); Neutrophils Absolute Auto 8.1 K/mm3 (1.3-6.7); Neutrophils Percent Auto 70.9 % (45.5-73.1); Platelet Count Result 361 k/mm3 (150-375); Red Cell Distribution Width 12.1 % (11.5-14.5); White Blood Count 11.4 K/mm3 (4.5-10.0)
[2021-03-12 12:31] LABS: Alanine Aminotransferase 34 U/L (4-35); Albumin Level 3.5 g/dL (3.5-5.1); Alkaline Phosphatase 100 U/L (38-126); Anion Gap 6 mmol/L (8-16); Aspartate Amino Transferase 36 U/L (14-36); Bilirubin,Total 0.3 mg/dL (0.2-1.3); Blood Urea Nitrogen 7 mg/dL (7-17); Calcium 9.2 mg/dL (8.4-10.2); Carbon Dioxide 25 mmol/L (22-30); Chloride 109 mmol/L (98-107); Estimated Glomerular Filt Rate > 60; Glucose 80 mg/dL (65-105); Sodium 140 mmol/L (137-145); Uric Acid 4.8 mg/dL (2.5-7.5)
--- NOTE | 2021-03-12 13:02 | PC.NURSE ---
Dr. Torre on unit and informed this pt had a repeat on 03/07 for preeclampsia- she had been on Magnesium sulfate both pre and post op. Pt was discharged home yesterday and BP was elevated when it was checked in the office this morning. Pt denies headache and visual disturbance, epigastric/RUQ pain. Small amount of swelling in feet and lower legs. DTR's 2+ and no clonus. Discussed pt was on Procardia 30 XL BID and Labetalol 200 mg po q8 hr. informed of BP's and lab results. Order received for extra dose of Labetalol.
[2021-03-12] MEDS: LABETALOL HCL 100 MG TABLET 400 MG PO (13:20)
--- NOTE | 2021-03-12 13:48 | PC.NURSE ---
Pt's BP's are lower because she is laying tilted to her left side.
--- NOTE | 2021-03-12 14:30 | PC.NURSE ---
Pt back to sitting in semi-fowlers position.
--- NOTE | 2021-03-12 15:14 | PC.NURSE ---
Dr. Torre updated on BP's and order received for an additional 200 mg of Labetalol now.
[2021-03-12] MEDS: LABETALOL HCL 100 MG TABLET 200 MG PO (15:29)
--- NOTE | 2021-03-12 16:24 | PC.NURSE ---
Dr. Torre updated on BP's. Pt has had 600 mg of Labetalol now. Pt continues to deny headache, visual disturbance, epigastric/RUQ pain. Order received for an additional dose of Procardia 30 XL.
[2021-03-12] MEDS: NIFEdipine 30 MG TAB.ER.24 PO (16:39)
--- NOTE | 2021-03-12 17:20 | PC.NURSE ---
Dr. Torre informed of continued elevated BP's Procardia was just given approx. 40 mins ago, but the pt is now c/o a dull frontal headache she rates as a 2 out of 10. Order received for Tylenol. Discussed pt's home meds with MD to get orders for meds to continue giving tonight.
[2021-03-12] MEDS: ACETAMINOPHEN 500 MG TABLET 1000 MG PO (17:52)
--- NOTE | 2021-03-12 19:19 | PC.NURSE ---
Dr. Torre updated with pt blood pressures. pt denies pain at this time, no headache, no visual disturbances. Pt request Mucinex for sinus drainage. Order received from Dr. Torre. No other new orders at this time.
[2021-03-12] MEDS: guaiFENesin 12 HR 600 MG TABCR 1200 MG PO (20:31)
[2021-03-12] MEDS: NIFEdipine 30 MG TAB.ER.24 60 MG PO (20:32)
[2021-03-12] MEDS: SERTRALINE HCL 50 MG TABLET PO (20:32)
--- NOTE | 2021-03-12 21:18 | PC.NURSE ---
Dr. Torre updated on pt blood pressure. pt has slight incisional pain and requested a dose of medication. Order received for Hydrocodone 10/325 x 1. No other new orders at this time.
[2021-03-12] MEDS: LABETALOL HCL 100 MG TABLET 600 MG PO (21:38)
[2021-03-12] MEDS: HYDROcodone/acetaminophen (*CRX) 10-325 MG TABLET 1 TAB PO (23:07)
[2021-03-13] VITALS (9 sets, daily range): BP systolic 112–148; BP diastolic 56–85; PULSE 70–86; RESP 16; TEMP 36.6
[2021-03-13] MEDS: LEVOTHYROXINE SODIUM 75 MCG TABLET PO (07:37)
--- NOTE | 2021-03-13 07:42 | PM.IMHP ---
H&P: HPI History of Present Illness Date/Time: 03/13/21 07:42 Chief Complaint: elevated BPs Narrative: susie is 6 days post op R CS for severe PreE. Had mag pre and post and BPs were hard to control pp. Went home on labetalol 200 TID and procardia 30 BID. Was readmitted yesterday with severe range BPs in the office. BP meds increased. This am 145/84. Mild GOMEZ, thinks it is from how she slept. Denies Bv. Review of Systems Review of Systems: All systems reviewed & are unremarkable except as noted in HPI and below [facility] Past Medical History Medical History (Updated 03/13/21 @ 07:45 by Vanita Torres MD) Hypothyroidism PIH ( induced hypertension) Family History Family History (Updated 03/07/21 @ 06:10 by Shelli Brandon RN) Grandparent Diabetes mellitus Lung cancer Father Hypertension Mother Hypertension Social History Social History Smoking status: Never smoker Second hand tobacco smoke exposure: No Substance use: never Gender identity (if verbalized by the patient): Female Spiritual care concerns: No Meds Home Medications and Allergies Home Medications Medication Instructions Recorded Confirmed Type 1 tablet PO DAILY 03/07/21 03/12/21 History levothyroxine 50 mcg PO DAILY 03/07/21 03/12/21 History hydrocodone-acetaminophen 1 tablet PO Q4-5H PRN #30 tablet 03/11/21 03/12/21 Rx ibuprofen 600 mg PO Q6H PRN #60 tablet 03/11/21 03/12/21 Rx labetalol 200 mg PO Q8HR #90 tablet 03/11/21 03/12/21 Rx nifedipine [Procardia XL] 30 mg PO BID #60 tablet 03/11/21 03/12/21 Rx levothyroxine 75 mcg PO DAILY 03/12/21 03/12/21 History sertraline 50 mg PO HS 03/12/21 03/12/21 History Allergies Allergy/AdvReac Type Severity Reaction Status Date / Time No Known Allergies Allergy Verified 03/12/21 14:20 Vital Signs Vital Signs - 24 hr 03/12/21 11:55 03/12/21 11:56 03/12/21 12:02 Temperature 97.9 F Pulse Rate 73 73 77 Respiratory Rate Blood Pressure 163/95 H 167/84 H Blood Pressure [Right Arm] 163/95 H 03/12/21 12:30 03/12/21 12:32 03/12/21 12:47 Temperature Pulse Rate 69 67 65 Respiratory Rate Blood Pressure 154/97 H 157/91 H 168/95 H Blood Pressure [Right Arm] 03/12/21 13:01 03/12/21 13:16 03/12/21 13:20 Temperature Pulse Rate 65 68 80 Respiratory Rate Blood Pressure 180/85 H 166/85 H Blood Pressure [Right Arm] 03/12/21 13:48 03/12/21 14:01 03/12/21 14:31 Temperature Pulse Rate 64 68 67 Respiratory Rate Blood Pressure 148/83 H 141/72 H 156/93 H Blood Pressure [Right Arm] 03/12/21 15:05 03/12/21 15:10 03/12/21 15:29 Temperature Pulse Rate 69 64 66 Respiratory Rate Blood Pressure 162/99 H 164/84 H 178/77 H Blood Pressure [Right Arm] 03/12/21 15:31 03/12/21 16:01 03/12/21 16:23 Temperature 98.1 F Pulse Rate 67 64 73 Respiratory Rate Blood Pressure 169/91 H 160/93 H 163/85 H Blood Pressure [Right Arm] 03/12/21 16:38 03/12/21 17:16 03/12/21 18:01 Temperature Pulse Rate 66 66 70 Respiratory Rate Blood Pressure 171/97 H 168/87 H 160/89 H Blood Pressure [Right Arm] 03/12/21 19:01 03/12/21 19:07 03/12/21 20:01 Temperature 97.1 F L Pulse Rate 72 66 Respiratory Rate 18 Blood Pressure 159/84 H 167/84 H Blood Pressure [Right Arm] 03/12/21 21:01 03/12/21 21:37 03/12/21 21:38 Temperature Pulse Rate 71 70 70 Respiratory Rate Blood Pressure 166/84 H 159/78 H Blood Pressure [Right Arm] 03/12/21 23:07 03/13/21 01:54 03/13/21 01:56 Temperature 98 F Pulse Rate 78 78 Respiratory Rate 16 Blood Pressure 156/78 H 126/56 L Blood Pressure [Right Arm] 03/13/21 04:55 03/13/21 05:03 03/13/21 07:34 Temperature Pulse Rate 73 86 85 Respiratory Rate Blood Pressure 112/63 116/74 148/85 H Blood Pressure [Right Arm] Exam Const: General: no acute distress Resp: Effort & Inspection: normal respiratory effort
[2021-03-13] MEDS: IBUPROFEN 600 MG TABLET PO (08:09)
[2021-03-13] MEDS: LABETALOL HCL 100 MG TABLET 400 MG PO (08:10)
[2021-03-13] MEDS: NIFEdipine 30 MG TAB.ER.24 60 MG PO (08:11)
--- NOTE | 2021-03-13 11:26 | PC.NURSE ---
Dr Torres informed of BP's. OK to dc home and keep follow up for Tuesday with .
== END 2021-03-13 11:42 ==
LOC: ANHOBOP 18:00 → ANHOBPP 03-18 10:40
PROVIDERS: Admitting Provider Obstetrics & Gynecology; Visit Provider Obstetrics & Gynecology
DX: O16.5 Unspecified maternal hypertension, complicating the puerperium (principal)
CPT/HCPCS: 36415; 80053; 84550; 85025; A9270; G0378

== ENCOUNTER 2022-12-05 08:26 | Emergency (ER) | payer BC, SELFPAY ==
[2022-12-05 08:35] VITALS: BP 129/89; PULSE 68; RESP 16; TEMP 37.2; O2SAT 99
--- NOTE | 2022-12-05 08:36 | ED.EYEPROB ---
HPI - Eye Problem General Chief complaint: Eye Problems Stated complaint: left eye redness Time Seen by Provider: 12/05/22 08:41 Source: patient and RN notes reviewed Mode of arrival: ambulatory Limitations: no limitations History of Present Illness HPI Narrative: 37-year-old female presents concern for left eye redness. Reports symptoms started when she got back from vacation yesterday, she reports her eye was crusted shut overnight, she had to wake up twice to clean it. She reports it is itchy and not painful. She reports she also has an itchy ear. chief complaint: eye redness Related Data Home Medications Medication Instructions Recorded Confirmed levothyroxine 50 mcg tablet 50 mcg PO DAILY 03/07/21 12/05/22 levothyroxine 75 mcg tablet 75 mcg PO DAILY 03/12/21 12/05/22 sertraline 50 mg tablet 50 mg PO HS 03/12/21 12/05/22 Allergies Allergy/AdvReac Type Severity Reaction Status Date / Time No Known Allergies Allergy Verified 12/05/22 08:32 Review of Systems Review of Systems: CONSTITUTIONAL: Denies malaise, chills, sweats, or fever. EYES: Denies visual changes. Reports left eye redness, irritation, discharge. ENT: Denies rhinorrhea, congestion, sinus pain, otalgia or sore throat. Reports left itchy ear SKIN: Denies rash or itching. NEUROLOGIC: Denies numbness, weakness, or headache. PSYCHIATRIC: Denies anxiety or depression. All systems reviewed & are unremarkable except as noted in HPI and below [facility] Past Medical History Medical History Hypothyroidism PIH ( induced hypertension) Family History Family History Grandparent Diabetes mellitus Lung cancer Father Hypertension Mother Hypertension Social History Social History Smoking status: Never smoker Second hand tobacco smoke exposure: No Substance use: never Gender identity (if verbalized by the patient): Female Sexual Orientation (if Verbalized by the Patient): Straight or Heterosexual Spiritual care concerns: No Comments At time of signature, agree with nursing past medical, surgical, social and family history. There is no relevant family history pertinent to the presenting complaint Exam Narrative: GENERAL: Well-appearing, well-nourished, and in no acute distress. HEAD: Normocephalic, atraumatic. EYES: PERRLA, right conjunctiva and sclera clear, and EOMI. No nystagmus. Left sclera and conjunctivae injected with cloudy drainage noted, left upper eyelid mildly edematous. Right upper and lower eyelid unremarkable, no periorbital edema noted ENT: Nares clear, turbinates pink, no rhinorrhea or epistaxis. Mucous membranes moist. Right TM pearly goodman with sharp light reflex, dull light reflex on the left; no tragal tenderness. NECK: Supple. CHEST: No respiratory distress. Speaks in full sentences. HEART: Regular rate and rhythm. SKIN: Warm, dry, no visible rash. NEURO: Alert and oriented x3. PSYCH: Normal mood and affect Course Course Emergency Course: Patient is aware of diagnosis, understands and agrees to treatment plan. Anticipatory guidance given. Patient agrees to follow-up as directed and is aware of reasons to seek care at the emergency department. Portions of this record may have been created with voice recognition software Level of Care: Express Care Visit Vital Signs Vital signs: Vital Signs Temperature 98.9 F 12/05/22 08:35 Pulse Rate 68 12/05/22 08:35 Respiratory Rate 16 12/05/22 08:35 Blood Pressure 129/89 12/05/22 08:35 Pulse Oximetry 99 12/05/22 08:35 Oxygen Delivery Room Air 12/05/22 08:35 Temperature 98.9 F 12/05/22 08:35 Pulse Rate 68 12/05/22 08:35 Respiratory Rate 16 12/05/22 08:35 Blood Pressure 129/89 12/05/22 08:35 Pulse Oximetry 99 12/05/22 08:35 Oxygen Delivery Room Air 12/05/22 08:35 R
== END 2022-12-05 08:57 | disposition home or self-care (01) ==
PROVIDERS: Emergency Provider Nurse Practitioner; PCP Nurse Practitioner Family
DX: H10.9 Unspecified conjunctivitis (principal); E03.9 Hypothyroidism, unspecified
CPT/HCPCS: 99213; G0463